=== PATIENT | female | born 1975 | race Caucasian/White ===

== ENCOUNTER 2017-05-16 18:01 | Emergency (ER) | payer SELFPAY ==
[2017-05-16 18:17] VITALS: O2SAT 100; BMI 32.9
[2017-05-16 18:55] LABS: HCG,QUALITATIVE URINE NEGATIVE (NEGATIVE)
[2017-05-16 18:59] LABS: BASO # 0.1 K/uL (0.0-0.2); BASO % 1.2 % (0.0-2.0); EOS # 0.6 K/uL (0.0-0.7); HEMOGLOBIN 12.2 g/dL (11.0-16.0); LYMPH # 2.4 K/uL (1.0-4.3); MEAN CELL VOLUME 76.6 fL (81.0-99.0); MEAN CORPUSCULAR HEMOGLOBIN 23.8 pg (27.0-31.0); MEAN CORPUSCULAR HGB CONC 31.1 g/dL (33.0-37.0); MEAN PLATELET VOLUME 8.4 fL (7.2-11.7); MONO # 0.7 K/uL (0.0-0.8); MONO % 7.4 % (0.0-10.0); NEUT # 5.5 K/uL (1.8-7.0); NEUT % 59.4 % (50.0-75.0); RBC 5.12 Mil/uL (3.80-5.20); RED CELL DISTRIBUTION WIDTH 15.2 % (11.5-14.5); WHITE BLOOD COUNT 9.2 K/uL (4.8-10.8)
[2017-05-16 19:00] LABS: SQUAMOUS EPITHIAL 9 /hpf (0-5); URINE BILIRUBIN NEGATIVE (NEGATIVE); URINE BLOOD 2+ (NEGATIVE); URINE CLARITY Clear (Clear); URINE COLOR Yellow (YELLOW); URINE GLUCOSE (UA) NORMAL (Normal); URINE LEUKOCYTE ESTERASE 1+ Leu/uL (Negative); URINE NITRATE NEGATIVE (NEGATIVE); URINE PROTEIN NEGATIVE (NEGATIVE)
[2017-05-16 19:09] LABS: ALBUMIN 4.4 g/dL (3.5-5.0)
--- NOTE | 2017-05-16 19:10 | C.PDOC ---
"History Of Present Illness 42 y/o female presents to ED with complaints of intermittent epigastric pain for a couple of weeks. Patient states pain is worse when she eats spicy food and it is similar to pain felt in 2008 when gallbladder was removed. Patient reports vomiting this evening, blood was noted the 1st time and the she vomited bile. Patient denies fever, chills, diarrhea or any other complaints at this time. Time Seen by Provider: 05/16/17 18:32 Chief Complaint (Nursing): Abdominal Pain History Per: Patient History/Exam Limitations: no limitations Onset/Duration Of Symptoms: Days Current Symptoms Are (Timing): Still Present Location Of Pain/Discomfort: Epigastric Associated Symptoms: Vomiting Past Medical History Reviewed: Historical Data, Nursing Documentation, Vital Signs Vital Signs: Last Vital Signs Temp 98.5 F 05/16/17 18: Pulse 90 05/16/17 18:17 Resp 18 05/16/17 18:17 BP 138/86 05/16/17 18: Pulse Ox 100 05/16/17 21:02 - Medical History PMH: Asthma, HTN Surgical History: Appendectomy, Cholecystectomy Family History: States: Unknown Family Hx - Social History Hx Tobacco Use: No Hx Alcohol Use: No Hx Substance Use: No - Immunization History Hx Tetanus Toxoid Vaccination: No Hx Influenza Vaccination: No Hx Pneumococcal Vaccination: No Review Of Systems Except As Marked, All Systems Reviewed And Found Negative. Constitutional: Negative for: Fever, Chills Gastrointestinal: Positive for: Vomiting, Abdominal Pain. Negative for: Nausea , Diarrhea Musculoskeletal: Negative for: Back Pain Skin: Negative for: Rash Physical Exam - Physical Exam Appears: Non-toxic, No Acute Distress Skin: Normal Color, Warm Head: Atraumatic, Normacephalic Oral Mucosa: Moist Cardiovascular: Rhythm Regular, No Murmur Respiratory: Normal Breath Sounds, No Rales, No Rhonchi, No Wheezing Gastrointestinal/Abdominal: Tenderness (Epigastrium Tenderness), No Guarding, No Rebound Extremity: Normal ROM, Capillary Refill (<2 seconds) Neurological/Psych: Oriented x3 ED Course And Treatment - Laboratory Results Result Diagrams: 05/16/17 18:54 05/16/17 18:54 Lab Interpretation: Normal O2 Sat by Pulse Oximetry: 100 (RA) Pulse Ox Interpretation: Normal - CT Scan/US US abdomen CT/US Interpretation: EXAM: US Abdomen Complete. CLINICAL HISTORY: 42 years old, female; Pain; Abdominal pain; Generalized; Prior surgery; Surgery date: 6+ months;. Surgery type: Gb removed 2008; Additional info: Abd pain. TECHNIQUE: Real-time ultrasound of the abdomen (complete) with image documentation. COMPARISON: No relevant prior studies available. FINDINGS: Limitations: Limitations colon body habitus. Liver: Liver is echodense, enlarged at 17 cm and poorly penetrated. There is a focal 3.2 x 3.3. hypoechoic possible mass in the left hepatic lobe without documented flow. Hepatopedal portal flow. No intrahepatic bile duct dilation. Gallbladder: Prior cholecystectomy. Common bile duct: Unremarkable as visualized. No stones. No dilation. Pancreas: Pancreas obscured. Kidneys: Unremarkable. No stones. No solid mass. No hydronephrosis. Spleen: Unremarkable. No splenomegaly. Aorta: Aorta obscured. Inferior vena cava: Unremarkable. IMPRESSION: No definitive sonographic findings to explain the patient's symptoms. Prior cholecystectomy without biliary dilatation. Hepatomegaly with steatosis. Possible mass in the left hepatic lobe. Because of the limitations of. the sonogram, recommend CT. LANDEN CARR | Preliminary Radiology Report Reevaluation Time: 21:00 Reassessment Condition: Improved (after Pepcid and Protonix.) Disposition Counseled Patient/Family Regarding: Studies Performed, Diagnosis, Need For Followup, Rx Given - Disposition Referrals: [facility] [Outside] Disposition: HOME/ ROUTINE Disposition Time: 21:02 Condition: IMPROVED Prescriptions: Famotidine [Pepcid] 20 mg PO BID #60 tab Pantoprazole Sodium [Protonix] 40 mg PO DAILY #30 ect Instructions: Acute Abdominal Pain (ED) - Clinical Impression Clinical Impression: Epigastric abdominal pain - Scribe Statement The provider has reviewed the documentation as recorded by the Himanshuibeladio Escobar All medical record entries made by the Himanhsuibeladio were at my direction and personally dictated by me. I have reviewed the chart and agree that the record accurately reflects my personal performance of the history, physical exam, medical decision making, and the department course for this patient. I have also personally directed, reviewed, and agree with the discharge instructions and disposition."
[2017-05-16 19:11] LABS: GFR AFRICAN-AMERICAN > 60; GFR NON-AFRICAN AMERICAN > 60
[2017-05-16 19:12] LABS: ALB/GLOB RATIO 1.1 (1.0-2.1); ALT/SGPT 48 U/L (9-52); AST/SGOT 26 U/L (14-36); BLOOD UREA NITROGEN 16 mg/dL (7-17)
[2017-05-16 19:13] LABS: CALCIUM 9.1 mg/dl (8.6-10.4); LIPASE 49 U/L (23-300)
[2017-05-16 21:33] VITALS: BP 121/70; PULSE 84; RESP 20; TEMP 97.7
--- NOTE | 2017-05-17 10:28 | US ---
Abdominal ultrasound History: Abdominal pain. Comparison: None available. Technique: Real-time sonography was performed through the abdomen. Findings: Limited study secondary to patient body habitus. Liver: Increased echogenicity of the hepatic parenchyma suggestive for fatty infiltration. Focal 3.2 x 3.3 centimeter hypoechoic lesion in the left hepatic lobe without documented flow. No intrahepatic biliary ductal dilatation. Gallbladder: Prior cholecystectomy. Common bile duct 3.6 millimeters, within normal limits. Pancreas not well visualized. Right kidney: 11.1 x 5.2 x 5.4 centimeters. No calculi or hydronephrosis. Left Kidney: 10.3 x 5.4 x 5.4 centimeters. No calculi or hydronephrosis. Spleen appears preserved. Visualized portions of the aorta appear preserved. IVC appears preserved. Impression: Limited study secondary to patient body habitus. Increased echogenicity of the hepatic parenchyma suggestive for fatty infiltration. 3.2 x 3.3 centimeter hypoechoic lesion in the left hepatic lobe of uncertain clinical etiology. Further evaluation with contrast-enhanced multiphasic CT or MR is recommended if clinically indicated. Prior cholecystectomy. Pancreas not well visualized. Limited visualization of the aorta. These findings were preliminarily reported at 8:31 p.m. on 05/16/[address] Katarina Sosa from [facility].
--- NOTE | 2017-05-18 00:31 | CARD ---
APPROVED REPORT EKG Measurement Heart [id number] <Conclusion> Normal sinus rhythm Normal ECG
== END 2017-05-16 21:33 | disposition home or self-care (01) ==
LOC: C.ER 18:01
DX: R10.13 Epigastric pain (principal)
CPT/HCPCS: 76700; 80053; 81001; 83690; 84703; 85025; 93005; 96374; 96375; 99285; C9113

== ENCOUNTER 2017-11-25 01:59 | Emergency (ER) | payer SELFPAY ==
[2017-11-25 02:02] VITALS: BMI 32.9
--- NOTE | 2017-11-25 02:30 | C.PDOC ---
History Of Present Illness Patient presents to the ER with a complaint of heavy vaginal bleeding for the past 4 days, associated with nausea and vomiting. Patient states she noticed some blood tinge in her vomit. Denies fever or chills. LMP was 09/21/17. Time Seen by Provider: 11/25/17 02:29 Chief Complaint (Nursing): Abdominal Pain History Per: Patient History/Exam Limitations: no limitations Onset/Duration Of Symptoms: Days Current Symptoms Are (Timing): Still Present Severity: Moderate Pain Scale Rating Of: 4 Location Of Pain/Discomfort: Epigastric Radiation Of Pain To:: None Quality Of Discomfort: Unable To Describe Associated Symptoms: Nausea, Vomiting, Other (Vaginal bleeding). denies: Fever , Chills Exacerbating Factors: None Alleviating Factors: None Recent travel outside of the [place]: No Abnormal Vaginal Bleeding: Yes Past Medical History Reviewed: Historical Data, Nursing Documentation, Vital Signs Vital Signs: Last Vital Signs Temp 98.1 F 11/25/17 05:23 Pulse 98 H 11/25/17 05:23 Resp 18 11/25/17 05:23 BP 127/78 11/25/17 05:23 Pulse Ox 96 11/25/17 05:23 - Medical History PMH: Asthma, HTN Surgical History: Appendectomy, Cholecystectomy Family History: States: No Known Family Hx - Social History Hx Tobacco Use: No Hx Alcohol Use: No Hx Substance Use: No - Immunization History Hx Tetanus Toxoid Vaccination: No Hx Influenza Vaccination: No Hx Pneumococcal Vaccination: No Review Of Systems Constitutional: Negative for: Fever, Chills Gastrointestinal: Positive for: Nausea, Vomiting (Blood tinged), Abdominal Pain Genitourinary: Positive for: Vaginal Bleeding Physical Exam - Physical Exam Appears: Non-toxic Skin: Warm, Dry Head: Normacephalic Oral Mucosa: Moist Chest: Symmetrical, No Tenderness Cardiovascular: Rhythm Regular Respiratory: No Rales, No Rhonchi, No Wheezing Gastrointestinal/Abdominal: Soft, Tenderness (Mid epigastric), No Guarding, No Rebound Neurological/Psych: Oriented x3 ED Course And Treatment - Laboratory Results Result Diagrams: 11/25/17 02:55 11/25/17 02:55 O2 Sat by Pulse Oximetry: 98 (Room air) Pulse Ox Interpretation: Normal Progress Note: Blood work and urinalysis ordered. IV fluids and zofran administered. pt feels much better and wants to go home. Understands the risks as I've explained at length including , but pt still wants to go home. Instructed to return if symptoms recur Reevaluation Time: 06:07 Reassessment Condition: Improved Disposition Counseled Patient/Family Regarding: Studies Performed, Diagnosis, Need For Followup, Rx Given - Disposition Referrals: [facility] [Outside] [facility] [Outside] Graham ECHEVERRIA,MD Judy [Medical Doctor] - Disposition: HOME/ ROUTINE Disposition Time: 02:30 Condition: FAIR Additional Instructions: Please return if symptoms recur. Prescriptions: Ondansetron ODT [Zofran ODT] 1 odt PO BID PRN #10 odt PRN Reason: Nausea/Vomiting Pantoprazole Sodium [Protonix] 40 mg PO DAILY #15 ect Instructions: Abdominal Pain (ED), Gas and Bloating (ED), Acute Nausea and Vomiting (ED) Forms: [employer] (Guatemalan) - Clinical Impression Clinical Impression: Abdominal pain, Nausea, Vomiting - Scribe Statement The provider has reviewed the documentation as recorded by the Scribeladio Pickens All medical record entries made by the Himanshuibeladio were at my direction and personally dictated by me. I have reviewed the chart and agree that the record accurately reflects my personal performance of the history, physical exam, medical decision making, and the department course for this patient. I have also personally directed, reviewed, and agree with the discharge instructions and disposition.
[2017-11-25] MEDS ORDERED: Sodium Chloride 0.9% 1,000 ML IV ONE (02:43)
[2017-11-25 02:59] LABS: BASO # 0.1 K/uL (0.0-0.2); BASO % 0.8 % (0.0-2.0); EOS # 0.2 K/uL (0.0-0.7); EOS % 1.9 % (0.0-4.0); HEMOGLOBIN 10.2 g/dL (11.0-16.0); LYMPH # 1.3 K/uL (1.0-4.3); LYMPH % 12.1 % (20.0-40.0); MEAN CELL VOLUME 66.5 fL (81.0-99.0); MEAN CORPUSCULAR HEMOGLOBIN 21.5 pg (27.0-31.0); MEAN CORPUSCULAR HGB CONC 32.3 g/dL (33.0-37.0); MEAN PLATELET VOLUME 7.9 fL (7.2-11.7); MONO # 0.5 K/uL (0.0-0.8); MONO % 5.1 % (0.0-10.0); NEUT # 8.4 K/uL (1.8-7.0); NEUT % 80.1 % (50.0-75.0); RBC 4.77 Mil/uL (3.80-5.20); RED CELL DISTRIBUTION WIDTH 16.7 % (11.5-14.5); WHITE BLOOD COUNT 10.4 K/uL (4.8-10.8)
[2017-11-25 02:59] LABS: SQUAMOUS EPITHIAL 1 /hpf (0-5); URINE BACTERIA RARE (<OCC); URINE BILIRUBIN NEGATIVE (NEGATIVE); URINE BLOOD NEGATIVE (NEGATIVE); URINE CLARITY Clear (Clear); URINE COLOR Colorless (YELLOW); URINE GLUCOSE (UA) NORMAL (Normal); URINE LEUKOCYTE ESTERASE NEG Leu/uL (Negative); URINE NITRATE NEGATIVE (NEGATIVE); URINE PROTEIN NEGATIVE (NEGATIVE); URINE UROBILINOGEN NORMAL mg/dL (0.2-1.0)
[2017-11-25 03:05] LABS: HCG,QUALITATIVE URINE NEGATIVE (NEGATIVE)
[2017-11-25 03:06] LABS: INR 1.1; PROTHROMBIN TIME 11.8 SECONDS (9.7-12.2)
[2017-11-25 03:11] LABS: ALBUMIN 4.1 g/dL (3.5-5.0); ALT/SGPT 76 U/L (9-52); AST/SGOT 94 U/L (14-36); BLOOD UREA NITROGEN 11 mg/dL (7-17); CALCIUM 8.9 mg/dl (8.6-10.4); GFR AFRICAN-AMERICAN > 60; GFR NON-AFRICAN AMERICAN > 60; LIPASE 57 U/L (23-300)
[2017-11-25] MEDS ORDERED: Iodixanol 320 mg/ml 150 ml Bottle IV ONE (03:38)
[2017-11-25 05:24] VITALS: BP 127/78; PULSE 98; RESP 18; TEMP 98.1
--- NOTE | 2017-11-25 05:37 | CT ---
EXAM: CT Abdomen and Pelvis With Intravenous Contrast CLINICAL HISTORY: 42 years old, female; Pain; Abdominal pain; Epigastric; Prior surgery; Surgery date: 6+ months; Surgery type: Gallbladder and appendix removed; Additional info: Mid epigastric pain, vomiting TECHNIQUE: Axial computed tomography images of the abdomen and pelvis with intravenous contrast. All CT scans at this facility use one or more dose reduction techniques, viz.: automated exposure control; ma/kV adjustment per patient size (including targeted exams where dose is matched to indication; i.e. head); or iterative reconstruction technique. Coronal and sagittal reformatted images were created and reviewed. CONTRAST: 100 mL of visipaque administered intravenously. COMPARISON: No relevant prior studies available. FINDINGS: Lower thorax: Small hiatal hernia. ABDOMEN: Liver: Fatty infiltration. Gallbladder and bile ducts: Cholecystectomy. No significant ductal dilation. Pancreas: No ductal dilation. No mass. Spleen: No splenomegaly. Adrenals: No mass. Kidneys and ureters: Too small to characterize lesion within RIGHT kidney. No hydronephrosis. Stomach and bowel: No definite mural thickening. No obstruction. Appendix: Appendectomy. PELVIS: Bladder: Unremarkable. Reproductive: Small ovarian follicles. ABDOMEN and PELVIS: Intraperitoneal space: No significant fluid collection. No free air. Bones/joints: No acute fracture. Soft tissues: Tiny umbilical hernia containing fat. Vasculature: Unremarkable. No aneurysm. Lymph nodes: No pathologically enlarged lymph nodes. IMPRESSION: 1. No definite acute intraabdominal abnormality. 2. Incidental/non-acute findings are described above.
[2017-11-25 06:10] VITALS: O2SAT 98
== END 2017-11-25 06:23 | disposition home or self-care (01) ==
LOC: C.ER 01:59
DX: R11.2 Nausea with vomiting, unspecified (principal); R10.13 Epigastric pain
CPT/HCPCS: 74177; 80053; 81001; 83690; 84703; 85025; 85610; 85730; 86850; 86900; 96374; 96375; 99284; C9113; J2405; J7040; Q9967